=== PATIENT | female | born 1980 | race American Indian/Alaskan Native ===

== ENCOUNTER 2017-02-01 02:17 | Observation (INO) | payer SELFPAY ==
[2017-02-01 02:46] VITALS: BMI 35.9
[2017-02-01 02:52] VITALS: TEMP 98.2
--- NOTE | 2017-02-01 03:02 | ED PDOC ---
Arrival/HPI - General Chief Complaint: Alcohol Ingestion Time Seen by Provider: 02/01/17 02:59 - History of Present Illness Narrative History of Present Illness (Text): 02/01/17 03:00 Patient presents with slurring of speech and alcohol on breath. Admits to drinking throughout the day. Pt denies suicidal or homicidal ideations. Denies any trauma or injury. (Adalberto Mills) Past Medical History - Provider Review Nursing Documentation Reviewed: Yes - Psychiatric Hx Substance Use: No - Anesthesia Hx Anesthesia: No Family/Social History Family/Social History: Unknown Family HX Smoking Status: Never Smoked Hx Alcohol Use: Yes Frequency of alcohol use: Socially Hx Substance Use: No Allergies/Home Meds Allergies/Adverse Reactions: Allergies No Known Allergies Allergy (Verified 02/01/17 02:46) Home Medications: Home Meds Medication Instructions Recorded Confirmed No Known Home Med 02/01/17 02/01/17 Review of Systems - Review of Systems Systems not reviewed;Unavailable: Intoxicated Physical Exam Vital Signs Reviewed: Yes Temperature: Afebrile Blood Pressure: Hypertensive Pulse: Tachycardic Respiratory Rate: Normal Appearance: Positive for: Well-Appearing Pain Distress: None Mental Status: Positive for: Alert and Oriented X 3 - Physical Exam Narrative Physical Exam (Text): pt in no distress, no airway compromise, breathing without difficulty, good insp /exp effort. No signs of head/torso/extremity trauma. Following commands without difficulty. Head: Present: Atraumatic, Normocephalic. No: Tenderness, Contusion, Swelling, Ecchymosis, Abrasion, Laceration Pupils: Present: PERRL Extroacular Muscles: Present: EOMI Conjunctiva: Present: Normal Mouth: Present: Moist Mucous Membranes Neck: Present: Normal Range of Motion. No: MIDLINE TENDERNESS, Paraspinal Tenderness Respiratory/Chest: Present: Clear to Auscultation, Good Air Exchange. No: Respiratory Distress, Accessory Muscle Use Cardiovascular: Present: Regular Rate and Rhythm, Normal S1, S2. No: Murmurs Abdomen: Present: Normal Bowel Sounds. No: Tenderness, Distention, Peritoneal Signs, Rebound, Guarding Back: Present: Normal Inspection. No: Midline Tenderness, Paraspinal Tenderness Upper Extremity: Present: Normal Inspection. No: Cyanosis, Edema Lower Extremity: Present: Normal Inspection. No: Edema Neurological: Present: GCS=15, CN II-XII Intact Skin: Present: Warm, Dry, Normal Color. No: Rashes Lymphatic: Present: OX3, NI, NC Psychiatric: Present: Alert. No: Agitated (Adalberto Mills) Vital Signs Temp Pulse Resp BP Pulse Ox 02/01/17 14:00 91 H 15 123/66 98 02/01/17 12:00 92 H 17 114/68 97 02/01/17 10:00 101 H 17 130/71 98 02/01/17 08:53 107 H 18 132/67 98 02/01/17 02:51 98.2 F 106 H 16 144/97 H 96 Medical Decision Making ED Course and Treatment: 02/01/17 07:00 patient signed out to Dr. Park in stable condition, PES eval, reeval dispo (Adalberto Mills) 02/01/17 07:00 Patient signed out to me by Dr. Mills. Pending PES assessment. 02/01/17 08:15 Case discussed with PES worker, who recommends reassessment in 2 hours. 02/01/17 08:23 Patient cursing and yelling racial slurs in emergency department. Attempted to verbally deescalate situation multiple times at bedside. Patient remains agitated and continue to curse and yell at staff. Patient sedated for her safety and safety of staff. EKG shows NSR at [address]-segment elevations, normal intervals. with no prior for comparison. Interpreted by me. 02/01/17 08:38 Patient put in 2 point restraints for her safety and safety of the staff. 02/01/17 12:17 Patient is resting comfortably. PES reassessed patient. Patient is too drowsy for assessment at this time. 02/01/17 16:03 pt clinicially sober. ambulatory. cleared by pes. ([place]) - Medication Orders Current Medication Orders: Discontinued Medications Lorazepam (Ativan) 2 mg IM STAT STA PRN Reason: Protocol Stop: 02/01/17 07:48 Last Admin: 02/01/17 08:31 Dose: 2 mg Ziprasidone (Geodon Inj) 20 mg IM STAT STA PRN Reason: Protocol Stop: 02/01/17 07:48 Last Admin: 02/01/17 08:31 Dose: 20 mg ED OBSERVATION Date of observation admission: 02/01/17 Time of observation admission: 03:00 - Observation admission statement Patient is being placed in observation because:: alcohol intoxication (Adalberto Mills) - Goals of Observation Goals of observation are:: pending sobriety (Adalberto Mills) - Progress Note Progress Note: 02/01/17 03:00 Pt brought in for alcohol intoxication. Will observe until morning, pending sobriety. 02/01/17 05:00 Pt resting currently, in no acute distress. (Adalberto Mills) Disposition/Present on Arrival - Present on Arrival Any Indicators Present on Arrival: No History of DVT/PE: No History of Uncontrolled Diabetes: No Urinary Catheter: No History of Decub. Ulcer: No History Surgical Site Infection Following: None - Disposition Have Diagnosis and Disposition been Completed?: Yes Disposition Time: 02:59 Patient Plan: Observation - Disposition Diagnosis: Alcohol intoxication, Depression Disposition: HOME/ ROUTINE Condition: STABLE
[2017-02-01 07:00] LABS: ADD MANUAL DIFF? NO
[2017-02-01 07:04] LABS: BASO # 0.04 K/mm3 (0.0-2.0); BASO % 0.4 % (0.0-3.0); EOS # 0.3 (0.0-0.7); EOS % 2.8 % (1.5-5.0); GRAN # 4.96 (1.4-6.5); HEMATOCRIT 44.7 % (36.0-48.0); LYMPH # 3.2 (1.2-3.4); LYMPH % 35.5 % (22.0-35.0); MEAN CELL VOLUME 82.5 fL (80.0-105.0); MEAN CORPUSCULAR HEMOGLOBIN 28.2 pg (25.0-35.0); MEAN CORPUSCULAR HGB CONC 34.2 g/dl (31.0-37.0); MONO # 0.6 (0.1-0.6); MONO % 6.3 % (1.0-6.0); PLATELET COUNT 377 10^3/uL (120.0-450.0); RED CELL DISTRIBUTION WIDTH 14.6 % (11.5-14.5)
[2017-02-01 07:13] LABS: PH,URINE 6.5 (4.7-8.0); URINE BILIRUBIN NEGATIVE (NEGATIVE); URINE BLOOD NEGATIVE (NEGATIVE); URINE GLUCOSE (UA) NEGATIVE (NEGATIVE); URINE KETONE NEGATIVE (NEGATIVE); URINE LEUKOCYTE ESTERASE NEGATIVE Leu/uL (NEGATIVE); URINE PROTEIN NEGATIVE mg/dL (<30 mg/dL); URINE UROBILINOGEN 0.2 E.U./dL (<1 E.U./dL)
[2017-02-01 07:22] LABS: URINE APPEARANCE CLEAR (CLEAR); URINE COLOR STRAW (YELLOW)
[2017-02-01 07:33] LABS: ALB/GLOB RATIO 1.2 (1.1-1.8); ALKALINE PHOSPHATASE 92 U/L (38-133); ALT/SGPT 40 U/L (7-56); AST/SGOT 32 U/L (15-39); BILIRUBIN,TOTAL 0.3 mg/dL (0.2-1.3); BLOOD UREA NITROGEN 11 mg/dL (7-21); CALCIUM 8.6 mg/dL (8.4-10.5); CARBON DIOXIDE 27 mmol/L (21-33); CHLORIDE 111 mmol/L (95-110); GFR AFRICAN-AMERICAN > 60; GLUCOSE,RANDOM 110 mg/dL (70-110); POTASSIUM 4.1 mmol/L (3.6-5.0); SODIUM 148 mmol/L (132-148); TOTAL PROTEIN 7.9 g/dL (5.8-8.3)
--- NOTE | 2017-02-01 09:31 | RAD ---
HISTORY: PES COMPARISON: No prior. FINDINGS: LUNGS: No active pulmonary disease. PLEURA: No significant pleural effusion identified, no pneumothorax apparent. CARDIOVASCULAR: Normal. OSSEOUS STRUCTURES: No significant abnormalities. VISUALIZED UPPER ABDOMEN: Normal. OTHER FINDINGS: None. IMPRESSION: No active disease.
--- NOTE | 2017-02-01 13:56 | CARD ---
APPROVED REPORT EKG Measurement Heart [id number] ID [id number] <Conclusion> Normal sinus rhythm Normal ECG
[2017-02-01 16:41] VITALS: BP 121/62; PULSE 92; RESP 17; O2SAT 97
== END 2017-02-01 16:00 | disposition home or self-care (01) ==
LOC: ED 02:17 → EROBSV 03:01
PROVIDERS: ADMIT Emergency Medicine; ATTEND Emergency Medicine
DX: F32.9 Major depressive disorder, single episode, unspecified (principal); F10.129 Alcohol abuse with intoxication, unspecified; Y90.8 Blood alcohol level of 240 mg/100 ml or more
CPT/HCPCS: 36415; 71010; 80053; 81003; 82948; 84703; 85025; 90791; 93005; 96372; 99285; G0378; G0480; J2060; J3486